=== PATIENT | female | born 1965 | race Caucasian/White ===

== ENCOUNTER 2018-02-25 14:39 | Emergency (ER) | payer BC, MEDICAID ==
[2018-02-25] MEDS ORDERED: Sodium Chloride 0.9% 1,000 ML IV ONE (14:41)
[2018-02-25] MEDS ORDERED: Ketorolac 30 MG/ML SDV IVPUSH ONE (14:41)
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
--- NOTE | 2018-02-25 15:20 | CR ---
EXAMINATION: PA chest radiograph. HISTORY: Shortness of breath. FINDINGS: The trachea is midline. The cardiomediastinal silhouette is within normal limits. No pulmonary infilt rates, effusions or pneumothorax. Osseous structures appear unremarkable. IMPRESSION: No acute cardiopulmonary process.
--- NOTE | 2018-02-25 15:26 | CR ---
EXAMINATION: Pelvis HISTORY: Pain COMPARISON: CT dated 02/08/2010 TECHNIQUE: AP view FINDINGS: There is no acute osseous abnormality, dislocation, or fracture. Bone mineralization and bud int spaces are preserved. The SI joints are symmetric. The iliopectineal lines are intact. IMPRESSION: No acute osseous abnormality identified.
--- NOTE | 2018-02-25 15:27 | CR ---
EXAMINATION: Left knee HISTORY: Pain COMPARISON: None TECHNIQUE: 3 views FINDINGS/IMPRESSION: There is no acute osseous abnormality, dislocation, or fracture. Bone mineraliza tion and joint spaces appear normal. No joint effusion or soft tissue swelling.
[2018-02-25 15:30] LABS: CHLORIDE,CL 104 mmol/L (98-107); SODIUM,NA 139 mmol/L (136-145)
--- NOTE | 2018-02-25 15:37 | CT ---
EXAMINATION: Non contrast CT head. Coronal and sagittal reformats. HISTORY: Pain FINDINGS: No evidence of intra or extra axial hemorrhage, mass, midline shift, hydrocephalus or edema. No hypoattenuation changes in the major vascular territories to suggest acute infarct. No abnormal intracranial calcifications are detected. No evidence of substantial vascular calcificat ions. Minimal mucosal thickening within the paranasal sinuses. Mastoid air cells are clear. Orbits and glob es are symmetric. Pituitary fossa appears unremarkable. Calvarium is intact. No evidence of skull fracture. IMPRESSION: No acute intracranial findings.
--- NOTE | 2018-02-25 15:44 | CT ---
EXAMINATION: CT cervical spine HISTORY: Pain COMPARISON: None TECHNIQUE: Axial CT images obtained through the cervical spine without contrast. Coronal and sagittal reconstructions obtained. FINDINGS: The cervical spinal alignment is normal. Vertebral body heights and disc spaces appear well -maintained. There is no fracture or acute osseous abnormality. Bone mineralization is normal. Early marginal osteophytes. The lung apices are clear. The paravertebral soft tissues are unremarkable. IMPRESSION: 1. No acute cervical spinal injury.
[2018-02-25] MEDS ORDERED: Acetaminophen/HYDROcodone 325-5 MG Tab PO ONE (15:50)
--- NOTE | 2018-02-25 15:53 | CT ---
EXAMINATION: CT lumbar spine without contrast HISTORY: Pain COMPARISON: None TECHNIQUE: Axial CT images obtained through the lumbar spine without contrast. Coronal and sagittal r econstructions obtained. FINDINGS: The lumbar spinal alignment is normal. Vertebral body heights and disc spaces appear mainta ined. There is no fracture or acute osseous abnormality. Bone mineralization appears normal. Retroper itoneal structures are grossly unremarkable. Mild marginal osteophytes IMPRESSION: No acute findings demonstrated.
== END 2018-02-25 16:21 | disposition home or self-care (01) ==
LOC: MW.ED 14:39
DX: M54.5 Low back pain (principal); V87.7XXA Person injured in collision between other specified motor vehicles (traffic), initial encounter; Z88.5 Allergy status to narcotic agent; Z88.0 Allergy status to penicillin
CPT/HCPCS: 70450; 71045; 72125; 72131; 72170; 73562; 80053; 81001; 85025; 96361; 96374; 99285; J1885; J7040; 99283